=== PATIENT | male | born 1985 | race Caucasian/White ===

== ENCOUNTER 2019-12-24 | Emergency (ER) | payer SELFPAY ==
[~2019-12-24] MED LIST: BENADRYL 50MG C50 MG PO; MEDDOSEPAK PO; PEPCID20 MG PO
[2019-12-24] MEDS ORDERED: KEFLEX500 M1 PO (11:58)
== END 2019-12-24 12:08 | disposition home or self-care (01) | DRG 605 ==
PROC: 0HQGXZZ Repair Left Hand Skin, External Approach (ICD-10-PCS; principal; 2019-12-24)
DX: S61.211A Laceration without foreign body of left index finger without damage to nail, initial encounter (principal); F17.210 Nicotine dependence, cigarettes, uncomplicated; W27.8XXA Contact with other nonpowered hand tool, initial encounter; Y93.H9 Activity, other involving exterior property and land maintenance, building and construction; Y92.007 Garden or yard of unspecified non-institutional (private) residence as the place of occurrence of the external cause

== ENCOUNTER 2022-06-02 18:12 | Emergency (ER) | payer SELFPAY ==
[~2022-06-02] VITALS: Ht 167.6 cm; Wt 65.9 kg
[~2022-06-02 18:12] MED LIST changes: +KEFLEX500 M1 PO
[2022-06-02 18:38] VITALS: BP 120/90
[2022-06-02 19:00] VITALS: BP 118/88
[2022-06-02 19:30] VITALS: BP 110/80
[2022-06-02] MEDS ORDERED: KEFLEX500 MG PO (19:34)
[2022-06-02 19:42] VITALS: BP 110/80
== END 2022-06-02 19:57 | disposition home or self-care (01) | DRG 605 ==
LOC: ED 18:12
PROC: 0HQDXZZ Repair Right Lower Arm Skin, External Approach (ICD-10-PCS; principal; 2022-06-02)
DX: S51.811A Laceration without foreign body of right forearm, initial encounter (principal); F17.200 Nicotine dependence, unspecified, uncomplicated; W01.110A Fall on same level from slipping, tripping and stumbling with subsequent striking against sharp glass, initial encounter; Z59.00 Homelessness unspecified

== ENCOUNTER 2022-08-19 13:25 | Inpatient (IN) | payer SELFPAY ==
[2022-08-19] VITALS (7 sets, daily range): BP systolic 103–129; BP diastolic 80–92
[~2022-08-19] VITALS: Ht 167.6 cm; Wt 66.0 kg
[~2022-08-19 13:25] MED LIST changes: +KEFLEX500 MG PO
[2022-08-19 14:24] LABS: HEMOGLOBIN 14.1 g/dl (14.0-18.0); IMMATURE GRANULOCYTES 0.1 % (0.0-5.0); MEAN CELL VOLUME 96.8 fL CALC (80.0-100.0); MEAN CORPUSCULAR HGB 31.8 pG CALC (26.0-32.0); MEAN CORPUSCULAR HGB CONC 32.8 g/dL CAL (32.0-36.0); NEUT# 6.54 thou/uL (1.82-7.42); RED BLOOD COUNT 4.44 mill/uL (4.70-6.10); RED CELL DISTRI WIDTH 13.8 % (11.5-15.5)
[2022-08-19 14:40] LABS: ALBUMIN 3.7 g/dL (3.2-5.0); ALKALINE PHOSPHATASE 112 u/l (38-126); ANION GAP 14 (6-22 (CALC)); BILIRUBIN, TOTAL 1.5 mg/dL (0.0-1.4); BUN 19 mg/dL (9-20); BUN/CREATININE RATIO 17 (12-20 (CALC)); CARBON DIOXIDE 20 mmol/l (22-30); CHLORIDE 109 mmol/l (95-108); CREATININE 1.1 mg/dL (0.7-1.3); GFR FOR AFR.AMER. > 60 ML/MIN (>=60 (CALC)); GFR OTHER RACES > 60 ML/MIN (>=60 (CALC)); SGOT/AST 102 u/l (17-59); SODIUM 138 mmol/l (137-146)
[2022-08-19 14:42] LABS: POTASSIUM 5.4 mmol/l (3.5-5.1)
[2022-08-19 15:10] LABS: TSH, 3RD GENERATION 3.07 uIU/mL (0.47 - 4.68)
[2022-08-20 00:23] VITALS: BP 108/76
[2022-08-20 04:26] VITALS: BP 129/98
[2022-08-20 05:40] LABS: BUN 22 mg/dL (9-20); BUN/CREATININE RATIO 21 (12-20 (CALC)); CALCULATED LDLCHOLESTEROL 89 mg/dL (62-129 (CALC)); CHLORIDE 105 mmol/l (95-108); CREATININE 1.1 mg/dL (0.7-1.3); GFR FOR AFR.AMER. > 60 ML/MIN (>=60 (CALC)); GFR OTHER RACES > 60 ML/MIN (>=60 (CALC)); HDL CHOLESTEROL 33 mg/dL (>=40); MAGNESIUM 1.5 mg/dL (1.6-2.3); SODIUM 137 mmol/l (137-146); TOTAL CHOLESTEROL 143 mg/dl (0-199); TOTAL TRIGLYCERIDES 103 mg/dl (30-149); VLDL CHOLESTROL 21 mg/dl (5-56 (CALC))
[2022-08-20 05:43] LABS: ANION GAP 11 (6-22 (CALC)); CARBON DIOXIDE 25 mmol/l (22-30); POTASSIUM 4.1 mmol/l (3.5-5.1)
[2022-08-20 05:46] VITALS: BP 104/75
[2022-08-20 06:31] VITALS: BP 110/84
[2022-08-20 14:35] VITALS: BP 108/75
[2022-08-20 14:37] VITALS: BP 108/75
== END 2022-08-20 17:00 | disposition left against medical advice (07) | DRG 292 ==
LOC: ED 13:25 → ED-I 15:00 → ED 16:52 → MS2 16:53
PROVIDERS: Emergency Medicine; ADMIT Internal Medicine; ATTEND Internal Medicine
DX: I50.21 Acute systolic (congestive) heart failure (principal); I42.7 Cardiomyopathy due to drug and external agent; F15.10 Other stimulant abuse, uncomplicated; L98.9 Disorder of the skin and subcutaneous tissue, unspecified; F31.9 Bipolar disorder, unspecified; F17.210 Nicotine dependence, cigarettes, uncomplicated; Z20.822 Contact with and (suspected) exposure to COVID-19
CPT/HCPCS: J1650; J3475

== ENCOUNTER 2022-08-31 23:21 | Inpatient (IN) | payer SELFPAY ==
[~2022-08-31] VITALS: Ht 167.6 cm; Wt 65.9 kg
[2022-08-31 23:25] VITALS: BP 107/85
[2022-08-31 23:30] VITALS: BP 110/82
[2022-08-31 23:45] VITALS: BP 100/78
[2022-09-01] VITALS (28 sets, daily range): BP systolic 84–120; BP diastolic 61–96
[2022-09-01 00:28] LABS: HEMATOCRIT 40.4 % (39.0-50.0); HEMOGLOBIN 13.2 g/dl (14.0-18.0); IMMATURE GRANULOCYTES 0.4 % (0.0-5.0); MEAN CELL VOLUME 97.1 fL CALC (80.0-100.0); MEAN CORPUSCULAR HGB 31.7 pG CALC (26.0-32.0); MEAN CORPUSCULAR HGB CONC 32.7 g/dL CAL (32.0-36.0); NEUT# 5.21 thou/uL (1.82-7.42); RED BLOOD COUNT 4.16 mill/uL (4.70-6.10); RED CELL DISTRI WIDTH 13.7 % (11.5-15.5)
[2022-09-01 00:57] LABS: ALBUMIN 3.2 g/dL (3.2-5.0); ALKALINE PHOSPHATASE 136 u/l (38-126); ANION GAP 12 (6-22 (CALC)); BILIRUBIN, TOTAL 1.1 mg/dL (0.0-1.4); BUN 19 mg/dL (9-20); BUN/CREATININE RATIO 22 (12-20 (CALC)); CHLORIDE 111 mmol/l (95-108); CREATININE 0.9 mg/dL (0.7-1.3); GFR FOR AFR.AMER. > 60 ML/MIN (>=60 (CALC)); GFR OTHER RACES > 60 ML/MIN (>=60 (CALC)); POTASSIUM 4.2 mmol/l (3.5-5.1); SGOT/AST 59 u/l (17-59); SODIUM 138 mmol/l (137-146)
[2022-09-01 01:20] LABS: CARBON DIOXIDE 19 mmol/l (22-30)
== END 2022-09-01 20:57 | disposition short-term general hospital (02) | DRG 291 ==
LOC: ED 23:21 → ED-I 09-01 01:15 → ED 09-01 01:29 → ICU 09-01 01:30
PROVIDERS: Emergency Medicine; ADMIT Internal Medicine; ATTEND Internal Medicine
DX: I50.21 Acute systolic (congestive) heart failure (principal); J18.9 Pneumonia, unspecified organism; F15.10 Other stimulant abuse, uncomplicated; F31.9 Bipolar disorder, unspecified; F17.210 Nicotine dependence, cigarettes, uncomplicated; T50.916A Underdosing of multiple unspecified drugs, medicaments and biological substances, initial encounter; Z91.128 Patient's intentional underdosing of medication regimen for other reason; Z20.822 Contact with and (suspected) exposure to COVID-19
CPT/HCPCS: J1650

== ENCOUNTER 2022-10-10 01:25 | Emergency (ER) | payer SELFPAY ==
[~2022-10-10] VITALS: Ht 167.6 cm; Wt 82.0 kg
[2022-10-10] VITALS (11 sets, daily range): BP systolic 99–126; BP diastolic 61–81
[2022-10-10 01:58] LABS: HEMOGLOBIN 15.1 g/dl (14.0-18.0); MEAN CELL VOLUME 99.4 fL CALC (80.0-100.0); MEAN CORPUSCULAR HGB 31.3 pG CALC (26.0-32.0); MEAN CORPUSCULAR HGB CONC 31.5 g/dL CAL (32.0-36.0); NEUT# 3.58 thou/uL (1.82-7.42); RED BLOOD COUNT 4.82 mill/uL (4.70-6.10); RED CELL DISTRI WIDTH 14.6 % (11.5-15.5)
[2022-10-10 01:59] LABS: HEMATOCRIT 47.9 % (39.0-50.0)
[2022-10-10] MEDS ORDERED: SPIRONOLACT25 MG PO (01:59)
[2022-10-10] MEDS ORDERED: DIGOXIN0.125 MG PO (02:00)
[2022-10-10] MEDS ORDERED: CARVEDILOL6.25 MG PO (02:00)
[2022-10-10] MEDS ORDERED: MIDODRINE10 MG PO (02:01)
[2022-10-10] MEDS ORDERED: LISINOPRIL2.5 MG PO (02:01)
[2022-10-10 02:09] LABS: ALBUMIN 3.4 g/dL (3.2-5.0); ALKALINE PHOSPHATASE 119 u/l (38-126); BUN 16 mg/dL (9-20); BUN/CREATININE RATIO 16 (12-20 (CALC)); CHLORIDE 106 mmol/l (95-108); GFR FOR AFR.AMER. > 60 ML/MIN (>=60 (CALC)); GFR OTHER RACES > 60 ML/MIN (>=60 (CALC)); POTASSIUM 4.7 mmol/l (3.5-5.1); SGOT/AST 52 u/l (17-59); SODIUM 137 mmol/l (137-146)
[2022-10-10 02:11] LABS: ANION GAP 11 (6-22 (CALC)); CARBON DIOXIDE 25 mmol/l (22-30)
[2022-10-10 02:21] LABS: MYOGLOBIN 409 ng/mL (0 - 121)
[2022-10-10 03:57] LABS: URINE BILIRUBIN - DIPSTICK NEGATIVE (NEGATIVE); URINE BLOOD DIPSTICK NEGATIVE (NEGATIVE); URINE COLOR YELLOW; URINE GLUCOSE - DIPSTICK NEGATIVE (NEGATIVE); URINE KETONE NEGATIVE (NEGATIVE); URINE LEUK ESTERASE NEGATIVE (NEGATIVE); URINE NITRITE - DIPSTICK NEGATIVE (Negative); URINE PH 5.5 (4.5-8.0); URINE PROTEIN - DIPSTICK NEGATIVE (NEG-TRACE); URINE UROBILINOGEN - DIPSTICK 0.2 E.U./dL (0.2)
[2022-10-10] MEDS ORDERED: BUMETANIDE1 MG PO (04:11)
== END 2022-10-10 04:22 | disposition home or self-care (01) | DRG 293 ==
LOC: ED 01:25
PROVIDERS: Family Medicine
DX: I50.9 Heart failure, unspecified (principal); F31.9 Bipolar disorder, unspecified; F17.210 Nicotine dependence, cigarettes, uncomplicated

== ENCOUNTER 2022-10-22 06:29 | Emergency (ER) | payer SELFPAY ==
[~2022-10-22] VITALS: Ht 167.6 cm; Wt 65.9 kg
[~2022-10-22 06:29] MED LIST changes: +BUMETANIDE1 MG PO; +CARVEDILOL6.25 MG PO; +DIGOXIN0.125 MG PO; +LISINOPRIL2.5 MG PO; +MIDODRINE10 MG PO; +SPIRONOLACT25 MG PO
[2022-10-22 06:37] VITALS: BP 105/78
[2022-10-22 06:45] VITALS: BP 116/88
[2022-10-22] MEDS ORDERED: BACTROBAN TOP (06:49)
[2022-10-22 07:05] VITALS: BP 116/88
== END 2022-10-22 07:10 | disposition home or self-care (01) | DRG 605 ==
LOC: ED 06:29
DX: S91.105A Unspecified open wound of left lesser toe(s) without damage to nail, initial encounter (principal)

== ENCOUNTER 2022-10-24 08:13 | Emergency (ER) | payer SELFPAY ==
[2022-10-24] VITALS (9 sets, daily range): BP systolic 70–112; BP diastolic 43–83
[~2022-10-24] VITALS: Ht 167.6 cm; Wt 68.0 kg
[~2022-10-24 08:13] MED LIST changes: +BACTROBAN TOP
[2022-10-24 09:18] LABS: BASO% 0.4 % (0-3); EOS% 1.3 % (0-8); HEMATOCRIT 44.7 % (39.0-50.0); IMMATURE GRANULOCYTES 0.4 % (0.0-5.0); MEAN CELL VOLUME 95.3 fL CALC (80.0-100.0); MEAN CORPUSCULAR HGB CONC 33.6 g/dL CAL (32.0-36.0); NEUT# 5.73 thou/uL (1.82-7.42); NEUT% 49.9 % (42-76); RED BLOOD COUNT 4.69 mill/uL (4.70-6.10); RED CELL DISTRI WIDTH 15.4 % (11.5-15.5)
[2022-10-24 09:23] LABS: ALBUMIN 3.5 g/dL (3.2-5.0); ALKALINE PHOSPHATASE 142 u/l (38-126); BILIRUBIN, TOTAL 2.9 mg/dL (0.0-1.4); CARBON DIOXIDE 25 mmol/l (22-30); CREATININE 1.4 mg/dL (0.7-1.3); GFR FOR AFR.AMER. > 60 ML/MIN (>=60 (CALC)); GFR OTHER RACES 56 ML/MIN (>=60 (CALC)); TOTAL PROTEIN 6.7 g/dL (6.3-8.2)
[2022-10-24 09:28] LABS: ANION GAP 14 (6-22 (CALC)); BUN 42 mg/dL (9-20); BUN/CREATININE RATIO 30 (12-20 (CALC)); CHLORIDE 93 mmol/l (95-108); POTASSIUM 3.4 mmol/l (3.5-5.1); SGOT/AST 507 u/l (17-59); SODIUM 129 mmol/l (137-146)
[2022-10-24] MEDS ORDERED: SPIRONOLACT25 MG PO (10:08)
[2022-10-24] MEDS ORDERED: DIGITEK0.125 M1 PO (10:08)
[2022-10-24] MEDS ORDERED: LISINOPRIL2.5 MG PO (10:08)
[2022-10-24] MEDS ORDERED: CARVEDILOL6.25 MG PO (10:08)
[2022-10-24] MEDS ORDERED: BUMETANIDE1 MG PO (10:08)
[2022-10-24] MEDS ORDERED: MIDODRINE10 MG PO (10:08)
[2022-10-24] MEDS ORDERED: DOXY-CAPS100 MG PO (10:08)
== END 2022-10-24 10:30 | disposition left against medical advice (07) | DRG 280 ==
LOC: ED 08:13
PROVIDERS: Family Medicine
DX: I50.21 Acute systolic (congestive) heart failure (principal); J18.9 Pneumonia, unspecified organism; I21.4 Non-ST elevation (NSTEMI) myocardial infarction; Z72.0 Tobacco use; E80.6 Other disorders of bilirubin metabolism; R74.01 Elevation of levels of liver transaminase levels; Z53.29 Procedure and treatment not carried out because of patient's decision for other reasons
CPT/HCPCS: J1650

== ENCOUNTER 2022-11-24 16:24 | Emergency (ER) | payer SELFPAY ==
[~2022-11-24] VITALS: Ht 167.6 cm; Wt 72.6 kg
[2022-11-24] VITALS (17 sets, daily range): BP systolic 95–122; BP diastolic 75–96
[~2022-11-24 16:24] MED LIST changes: +DIGITEK0.125 M1 PO; +DOXY-CAPS100 MG PO
[2022-11-24 17:39] LABS: BASO% 0.2 % (0-3); EOS% 0.1 % (0-8); HEMATOCRIT 42.5 % (39.0-50.0); HEMOGLOBIN 13.9 g/dl (14.0-18.0); IMMATURE GRANULOCYTES 0.2 % (0.0-5.0); LYMPH% 24.7 % (15-41); MEAN CELL VOLUME 95.7 fL CALC (80.0-100.0); MEAN CORPUSCULAR HGB 31.3 pG CALC (26.0-32.0); MEAN CORPUSCULAR HGB CONC 32.7 g/dL CAL (32.0-36.0); MONO% 13.4 % (2-13); NEUT# 6.52 thou/uL (1.82-7.42); NEUT% 61.4 % (42-76); RED BLOOD COUNT 4.44 mill/uL (4.70-6.10); RED CELL DISTRI WIDTH 16.1 % (11.5-15.5)
[2022-11-24 17:50] LABS: ALBUMIN 3.1 g/dL (3.2-5.0); ALKALINE PHOSPHATASE 139 u/l (38-126); ANION GAP 11 (6-22 (CALC)); BUN 32 mg/dL (9-20); BUN/CREATININE RATIO 28 (12-20 (CALC)); C-REACTIVE PROTEIN 2.1 mg/dL (0-0.9); CARBON DIOXIDE 24 mmol/l (22-30); CHLORIDE 99 mmol/l (95-108); CREATININE 1.1 mg/dL (0.7-1.3); GFR FOR AFR.AMER. > 60 ML/MIN (>=60 (CALC)); GFR OTHER RACES > 60 ML/MIN (>=60 (CALC)); POTASSIUM 3.8 mmol/l (3.5-5.1); SGOT/AST 369 u/l (17-59); SODIUM 130 mmol/l (137-146); TOTAL PROTEIN 6.4 g/dL (6.3-8.2)
[2022-11-24 17:56] LABS: BILIRUBIN, TOTAL 4.4 mg/dL (0.2-1.3)
[2022-11-24] MEDS ORDERED: LEVOFLOXACIN500MG PO (20:23)
[2022-11-24] MEDS ORDERED: VIBRAMYCIN100 M2 PO (20:23)
== END 2022-11-24 20:40 | disposition left against medical advice (07) | DRG 603 ==
LOC: ED 16:24
PROVIDERS: Nurse Practitioner
DX: L03.116 Cellulitis of left lower limb (principal); L03.115 Cellulitis of right lower limb; Z53.29 Procedure and treatment not carried out because of patient's decision for other reasons; I25.2 Old myocardial infarction; I50.9 Heart failure, unspecified; F31.9 Bipolar disorder, unspecified
CPT/HCPCS: J0692

== ENCOUNTER 2022-12-04 15:44 | Emergency (ER) | payer SELFPAY ==
[~2022-12-04] VITALS: Ht 167.6 cm; Wt 81.6 kg
[2022-12-04] VITALS (17 sets, daily range): BP systolic 29–131; BP diastolic 14–92
[~2022-12-04 15:44] MED LIST changes: +LEVOFLOXACIN500MG PO; +VIBRAMYCIN100 M2 PO
[2022-12-04 16:25] LABS: BASO% 0.4 % (0-3); EOS% 0.2 % (0-8); HEMATOCRIT 45.9 % (39.0-50.0); HEMOGLOBIN 15.2 g/dl (14.0-18.0); IMMATURE GRANULOCYTES 0.1 % (0.0-5.0); LYMPH% 26.7 % (15-41); MEAN CELL VOLUME 93.1 fL CALC (80.0-100.0); MEAN CORPUSCULAR HGB 30.8 pG CALC (26.0-32.0); MEAN CORPUSCULAR HGB CONC 33.1 g/dL CAL (32.0-36.0); MONO% 9.1 % (2-13); NEUT# 6.94 thou/uL (1.82-7.42); NEUT% 63.5 % (42-76); RED BLOOD COUNT 4.93 mill/uL (4.70-6.10); RED CELL DISTRI WIDTH 16.2 % (11.5-15.5)
[2022-12-04 17:04] LABS: ALBUMIN 3.3 g/dL (3.2-5.0); BILIRUBIN, TOTAL 3.7 mg/dL (0.2-1.3); BUN 35 mg/dL (9-20); BUN/CREATININE RATIO 30 (12-20 (CALC)); CARBON DIOXIDE 23 mmol/l (22-30); CHLORIDE 91 mmol/l (95-108); CREATININE 1.2 mg/dL (0.7-1.3); GFR FOR AFR.AMER. > 60 ML/MIN (>=60 (CALC)); GFR OTHER RACES > 60 ML/MIN (>=60 (CALC)); POTASSIUM 4.1 mmol/l (3.5-5.1); SGOT/AST 206 u/l (17-59)
[2022-12-04 17:07] LABS: ALKALINE PHOSPHATASE 229 u/l (38-126); ANION GAP 13 (6-22 (CALC)); SODIUM 123 mmol/l (137-146)
[2022-12-04 20:40] LABS: URINE BILIRUBIN - DIPSTICK NEGATIVE (NEGATIVE); URINE BLOOD DIPSTICK TRACE-INTACT (NEGATIVE); URINE COLOR YELLOW; URINE GLUCOSE - DIPSTICK NEGATIVE (NEGATIVE); URINE KETONE NEGATIVE (NEGATIVE); URINE LEUK ESTERASE NEGATIVE (NEGATIVE); URINE PROTEIN - DIPSTICK NEGATIVE (NEG-TRACE); URINE UROBILINOGEN - DIPSTICK 0.2 E.U./dL (0.2)
[2022-12-04 20:41] LABS: URINE NITRITE - DIPSTICK NEGATIVE (Negative)
[2022-12-05 00:50] VITALS: BP 103/81
== END 2022-12-05 00:01 | disposition short-term general hospital (02) | DRG 292 ==
LOC: ED 15:44
PROVIDERS: Nurse Practitioner
DX: I50.9 Heart failure, unspecified (principal); E87.1 Hypo-osmolality and hyponatremia; L03.116 Cellulitis of left lower limb; L03.115 Cellulitis of right lower limb; R74.01 Elevation of levels of liver transaminase levels; S91.105A Unspecified open wound of left lesser toe(s) without damage to nail, initial encounter; R60.1 Generalized edema; F31.9 Bipolar disorder, unspecified; I25.2 Old myocardial infarction; F17.210 Nicotine dependence, cigarettes, uncomplicated; X58.XXXA Exposure to other specified factors, initial encounter; T50.2X6A Underdosing of carbonic-anhydrase inhibitors, benzothiadiazides and other diuretics, initial encounter; Z91.128 Patient's intentional underdosing of medication regimen for other reason; Z59.89 Other problems related to housing and economic circumstances
CPT/HCPCS: J0692